=== PATIENT | female | born 1995 | race Two or more races ===

== ENCOUNTER → 2022-01-01 | Emergency (ER) | payer OTHER ==
[~2022-01-01] VITALS: Ht 165.1 cm; Wt 60.8 kg
[~2022-01-01] MED LIST: DOLOGEN 325-11 EACH PO; MEDROLPACK PO
== END | disposition home or self-care (01) ==
LOC: ER 14:16
DX: B34.9 Viral infection, unspecified (principal); Z20.822 Contact with and (suspected) exposure to COVID-19

== ENCOUNTER 2023-04-18 06:27 | Day surgery (SDC) | payer OTHER ==
[2023-04-15 13:39] LABS: HEMATOCRIT 39.4 % (36.0-45.00); HEMOGLOBIN 13.8 g/dL (12.0-15.00); MEAN CELL VOLUME 90.5 fL (80.00-100.00); MEAN CORPUSCULAR HEMOGLOBIN 31.8 pg (27.00-32.0); MEAN CORPUSCULAR HGB CONC 35.1 g/dl (32.0-36.0); PLATELET COUNT 326 K/uL (150-450); RED BLOOD COUNT 4.35 M/uL (4.00-6.00)
[2023-04-15 13:41] LABS: URINE APPEARANCE Clear; URINE BILIRRUBIN Negative (NEGATIVE); URINE BLOOD Moderate; URINE COLOR Yellow; URINE GLUCOSE Negative (NEGATIVE); URINE LEUKOCYTE Large; URINE NITRATE Negative; URINE PROTEIN Negative (NEGATIVE); URINE UROBILINOGEN 0.2 E.U./dl
[2023-04-15 13:42] LABS: URINE BACTERIA 1237.2 uL (0.0-1933); URINE EPITHELIAL CELLS 63.5 uL (0.0-38.8); URINE RBC 6.8 uL (0.0-20.8); URINE WBC 265.7 uL (0.0-23.2)
[2023-04-15 14:03] LABS: INR 0.96; PROTHROMBIN TIME 10.1 SECONDS (9.0-11.5)
[2023-04-15 14:08] LABS: ALBUMIN 4.4 gm/dL (3.4-5.0); BILIRUBIN TOTAL 0.57 mg/dL (0.3-1.2); CALCIUM 9.3 mg/dL (8.5-10.1); CREATININE SERUM 0.64 mg/dL (0.55-1.02); GFR 109.71; GLOBULINA 3.7 G/DL (2.4-3.5); TOTAL PROTEIN 8.1 gm/dL (6.4-8.2)
== END 2023-04-18 15:00 | disposition home or self-care (01) ==
LOC: CIR.AMB 06:27
PROVIDERS: ATTEND Colon & Rectal Surgery
DX: K64.2 Third degree hemorrhoids (principal); K64.4 Residual hemorrhoidal skin tags; K62.2 Anal prolapse; Z20.822 Contact with and (suspected) exposure to COVID-19; K59.00 Constipation, unspecified